=== PATIENT | male | born 1960 | race African-American/Black ===

== ENCOUNTER 2016-11-07 21:39 | Emergency (ER) | payer BC, OTHER ==
[~2016-11-07] VITALS: Ht 167.6 cm; Wt 75.7 kg
[2016-11-07 21:40] VITALS: BP 140/68
== END 2016-11-07 23:38 | disposition home or self-care (01) ==
LOC: ER 21:42
DX: S29.012A Strain of muscle and tendon of back wall of thorax, initial encounter (principal); E11.9 Type 2 diabetes mellitus without complications; W18.39XA Other fall on same level, initial encounter; Y93.89 Activity, other specified; Y92.89 Other specified places as the place of occurrence of the external cause; Y99.9 Unspecified external cause status
CPT/HCPCS: 71100; 72070; 99284; A4606; Z7610

== ENCOUNTER 2017-09-26 08:56 | Emergency (ER) | payer BC ==
[~2017-09-26] VITALS: Ht 170.2 cm; Wt 73.0 kg
--- NOTE | 2017-09-26 09:05 | NUR ---
PRESENTS TO ER C/O R ARM DISCOMFORT/ THROBBING SINCE LAST NIGHT. NO TRAUMA NOTED, NO NEURO DEFICITS. A/OX 4. BREATHING EVEN AND UNLABORED. NO SOB. VITALS STABLE. SAFETY AND COMFORT MEASURES IN PLACE. AWAITING MD ORDERS.
--- NOTE | 2017-09-26 09:45 | NUR ---
NEW IV STARTED ON LAC, 20 G. BLOOD DRAWN AND SENT TO LAB.
[2017-09-26] MEDS ORDERED: IV NS 0.9% 500 ML BAG IV ONE (10:00)
[2017-09-26 10:07] LABS: CALCIUM, SERUM 9.2 mg/dL (8.5-10.1); CREATININE 0.9 mg/dL (0.6-1.3); MAGNESIUM 1.9 mg/dL (1.8-2.4)
--- NOTE | 2017-09-26 11:15 | NUR ---
IV removed. Catheter intact and site benign. Pressure and 4x4 applied to site. No bleeding noted. Patient discharged to home in stable condition. Written and verbal after care instructions given. Patient verbalizes understanding of instruction.
[2017-09-26 11:23] VITALS: BP 114/75
== END 2017-09-26 11:15 | disposition home or self-care (01) ==
LOC: ER 08:57
DX: M79.1 Myalgia (principal); R25.2 Cramp and spasm; E11.9 Type 2 diabetes mellitus without complications; F17.200 Nicotine dependence, unspecified, uncomplicated
CPT/HCPCS: 36415; 80048; 82550; 83735; 93005; 99285; A4606; J7040; Z7610